=== PATIENT | male | born 1980 | race Caucasian/White ===

== ENCOUNTER 2016-12-07 15:26 | Outpatient (CLI) | payer OTHER ==
[2016-12-07 15:37] LABS: BASOPHILS % 1.2 (0.0-1.5); EOSINOPHILS % 1.6 % (0.0-6.8); MEAN CORPUSCULAR HEMOGLOBIN 32.3 pg (28.0-34.0); MEAN CORPUSCULAR VOLUME 91.4 fl (80.0-100.0); MONOCYTES % 4.9 % (0.0-11.0); NEUTROPHILS # 4.6 # k/uL (1.4-7.7)
[2016-12-07 15:47] LABS: eGFR (African) > 60; eGFR (Non-African) > 60
== END 2016-12-07 15:27 ==
LOC: LAB 15:26
PROVIDERS: ATTEND General Practice
DX: Z87.898 Personal history of other specified conditions (principal)
CPT/HCPCS: 80053; 85025